=== PATIENT | female | born 1985 | race Caucasian/White ===

== ENCOUNTER → 2021-05-17 | Outpatient (CLI) | payer OTHER | LOC: LAB 11:21 | PROVIDERS: ATTEND Emergency Medicine | DX: Z20.822 Contact with and (suspected) exposure to COVID-19 (principal) | CPT/HCPCS: 87636 ==

== ENCOUNTER → 2022-06-11 | Outpatient (CLI) | payer OTHER | LOC: CARD 07:57 | PROVIDERS: ATTEND Internal Medicine | DX: I21.9 Acute myocardial infarction, unspecified (principal) | CPT/HCPCS: 93005; 93225; 93226 ==

== ENCOUNTER → 2022-08-24 | Outpatient (CLI) | payer OTHER ==
[2022-08-24 13:37] VITALS: BP 100/80
== END ==
LOC: CARD 12:09
PROVIDERS: ATTEND Internal Medicine Cardiovascular Disease
DX: R55 Syncope and collapse (principal); R07.89 Other chest pain
CPT/HCPCS: C8929; C8930; 93306